=== PATIENT | male | born 1980 | race Hispanic/Latino ===

== ENCOUNTER 2017-01-08 22:50 | Emergency (ER) | payer OTHER ==
[2017-01-08 22:59] VITALS: BP 155/96; PULSE 103; RESP 16; TEMP 98.1; O2SAT 100
--- NOTE | 2017-01-08 23:46 | ED PDOC ---
HPI: Psych/Substance Abuse Time Seen by Provider: 01/08/17 23:08 Chief Complaint (Nursing): Psychiatric Evaluation Chief Complaint (Provider): crisis eval History Per: Patient History/Exam Limitations: no limitations Additional History Per: Patient Additional Complaint(s): 36 y/o male history of bipolar brought in by EMS with PD for crisis eval. Patient was reported as a "missing person" by his mother this morning. Patient denies suicidal/homicidal ideations, drug/alcohol use, acute medical complaints. Past Medical History Reviewed: Historical Data, Nursing Documentation, Vital Signs Vital Signs: Last Vital Signs Temp 98.1 F 01/08/17 22:54 Pulse 103 H 01/08/17 22:54 Resp 16 01/08/17 22:54 BP 155/96 H 01/08/17 22:54 Pulse Ox 100 01/08/17 22:54 - Medical History PMH: Bipolar Disorder Denies: Diabetes, Hepatitis, HIV, HTN, Seizures, Sexually Transmitted Disease - Surgical History Surgical History: Tonsillectomy - Family History Family History: States: Unknown Family Hx - Home Medications Home Medications: Ambulatory Orders Medication Instructions Recorded Meloxicam [Mobic] 7.5 mg PO BID PRN #14 tab 05/23/15 - Allergies Allergies/Adverse Reactions: Allergies Allergy/AdvReac Type Severity Reaction Status Date / Time No Known Allergies Allergy Verified 05/23/15 13:44 Review of Systems ROS Statement: Except As Marked, All Systems Reviewed And Found Negative Physical Exam - Reviewed Nursing Documentation Reviewed: Yes Vital Signs Reviewed: Yes - Physical Exam Appears: Positive for: Well, Non-toxic, No Acute Distress Head Exam: Positive for: ATRAUMATIC, NORMAL INSPECTION, NORMOCEPHALIC Skin: Positive for: Normal Color Eye Exam: Positive for: Normal appearance ENT: Positive for: Normal ENT Inspection Cardiovascular/Chest: Positive for: Regular Rate, Rhythm Respiratory: Positive for: Normal Breath Sounds Gastrointestinal/Abdominal: Positive for: Normal Exam Back: Positive for: Normal Inspection Extremity: Positive for: Normal ROM Neurologic/Psych: Positive for: Alert, Oriented - ECG O2 Sat by Pulse Oximetry: 100 - Progress ED Course And Treament: Patient evaluated by freezing room worker; does not meet criteria for admission at this time as per Dr. Allison. Follow up outpatient therapy. Return to ED for worsening/concerning symptoms. Disposition - Clinical Impression Clinical Impression: Bipolar disorder - Patient ED Disposition Is Patient to be Admitted: No Counseled Patient/Family Regarding: Diagnosis, Need For Followup - Disposition Disposition: Routine/Home Disposition Time: 23:48 Condition: STABLE Instructions: Bipolar Disorder (ED)
== END 2017-01-09 00:10 | disposition home or self-care (01) ==
LOC: H.ER 22:50
DX: F31.9 Bipolar disorder, unspecified (principal)